=== PATIENT | male | born 2000 | race Caucasian/White ===

== ENCOUNTER 2020-07-24 13:42 | Outpatient (REF) | payer OTHER, SELFPAY ==
--- NOTE | 2020-07-24 15:07 | MHC.AU.P13 ---
Adult Audiological Evaluation Date of Visit: 07/24/20 Reason for Appointment: Audiological evaluation due to failed hearing screening in left ear at recent physical. Patient denies any hearing concerns. Does patient feel they have a hearing loss?: No Has hearing been tested previously?: No Hearing Handicap Inventory HHIE SCORE: 0 Based on HHIE score, patient has: No perceived hearing handicap Ear History: Unremarkable Medical History: Medical History: Unremarkable Medical History Otoscopy: Right Ear: Unremarkable Left Ear: Unremarkable Tympanometry: Right Ear: Normal Middle Ear System (Type A) Left Ear: Normal Middle Ear System (Type A) Otoacoustic Emissions Frequency Range Used: 1.6-8 kHz Right Ear Results: Present Emissions Analysis: Present emissions suggest normal cochlear function Rules out peripheral hearing loss greater than a mild degree Left Ear Results: Normal responses 1.6-3.2 & 4.0-8.0 kHz. Reduced at 3.6 kHz. Analysis: Present emissions suggest normal cochlear function Reduced/Absent emissions suggest cochlear dysfunction Hearing Evaluation: Transducer(s) Used: Insert Earphones, Bone Conduction Method: Conventional Audiometry Stimuli Used: Pure Tones Right Ear: Description of Hearing: Normal hearing 250-8000 Hz. Left Ear: Description of Hearing: Normal hearing 250-8000 Hz. Speech Recognition Threshold (SRT): Method Used: Monitored Live Voice Stimuli Used: Spondee Words Right Ear: 10 dBHL Left Ear: 5 dBHL Word Discrimination: Method: Recorded Lists Word Lists Used: NU-6 Right Ear: 100% at 50 dBHL Left Ear: 100% at 50 dBHL Recommendations: Recommendations: No further audiological action is indicated at this time. Audiological re-evaluation if changes are noted. Recommendations (Other): Patient was advised to be cautious of volume of headphones/earbuds and to protect hearing when around loud noise. Diagnosis: Primary Diagnosis: H93.293 Abnormal Auditory Perception Services Performed: Services Performed: Comprehensive Audiological Evaluation (CPT 53111) Diagnostic Otoacoustic Emissions (CPT 28661, 26+TC) Tympanometry (CPT 38702) Signature: Provider: Elsa Mathews, CCC-A
== END 2020-07-24 13:43 | disposition home or self-care (01) ==
LOC: HO.SH 13:42
PROVIDERS: PCP Pediatrics; Referring Provider Nurse Practitioner Primary Care; Visit Provider Nurse Practitioner Primary Care
DX: H93.293 Other abnormal auditory perceptions, bilateral (principal)
CPT/HCPCS: 92557; 92567; 92588

== ENCOUNTER 2021-04-03 07:00 | Outpatient (RCR) | payer OTHER, SELFPAY | END 2021-08-12 09:53 | disposition home or self-care (01) | LOC: HO.PT 07:00 | PROVIDERS: PCP Nurse Practitioner Primary Care; Visit Provider Nurse Practitioner Primary Care | DX: M25.552 Pain in left hip (principal) | CPT/HCPCS: 97110; 97112; 97140; 97162; 97530 ==

== ENCOUNTER 2023-03-11 00:03 | Emergency (ER) | payer OTHER, SELFPAY ==
[2023-03-11 00:14] VITALS: BP 129/82; PULSE 78; RESP 14; TEMP 36.6; BMI 21.3
[2023-03-11 00:49] LABS: Appearance Urine Cloudy; Color Urine Yellow; Glucose Urine UA Negative (Negative); Leukocyte Esterase Urine Negative (Negative); Nitrite Urine Negative (Negative); Specific Gravity - Urine >= 1.030 (1.005-1.025); Urine Blood Negative (Negative); Urine Ketones Trace mg/dL (Negative); Urine Protein Negative (Neg-Trace)
[2023-03-11 00:59] LABS: Amphetamine Screen Urine Not Detected (Not Detect); Barbiturates, Urine Not Detected (Not Detect); Benzodiazepines Screen Urine Not Detected (Not Detect); Cannabinoid Screen Urine Not Detected (Not Detect); Cocaine Screen Urine Not Detected (Not Detect); Fentanyl, urine Not Detected (Not Detect); Opiate Screen Urine Not Detected (Not Detect); Phencyclidine Screen Urine Not Detected (Not Detect)
--- NOTE | 2023-03-11 01:13 | ED_ITS ---
HPI - Psych General Chief Complaint: Psychiatric Symptoms Stated Complaint: SI Time Seen by Provider: 03/11/23 00:13 Source: patient Mode of arrival: EMS Limitations: no limitations History of Present Illness HPI Narrative: Patient comes to the emergency room by ambulance for suicidal ideation. However, patient states that he is not suicidal. Patient states that he has a lot of stressors at home with his mother being sick. However, he was on the phone texting to friends, patient said that he wonders what suicide would be like. However, patient never intended to hurt himself or others. Patient has no psychiatric history. Related Data Home Medications Medication Instructions Recorded Confirmed No Known Home Meds 03/11/23 03/11/23 Allergies Allergy/AdvReac Type Severity Reaction Status Date / Time No Known Allergies Allergy Verified 03/11/23 00:25 Review of Systems Review of Systems: Constitutional : No Weight loss, No Fever, No Chills, No Night Sweats, No Fatigue, No Malaise ENT/Mouth : No Hearing loss, No Ear Pain, No Nasal Congestion, No Sinus Pain, No Hoarseness, No sore throat, No Rhinorrhea, No Swallowing Difficulty Eyes: No Eye Pain, No Swelling, No Redness, No Foreign Body, No Discharge, No Vision Changes Cardiovascular : No Chest Pain, No SOB, No Dyspnea on Exertion, No Orthopnea, No Edema, No Palpitations Respiratory : No Cough, No Sputum, No Wheezing, No Smoke Exposure, No Dyspnea Gastrointestinal : No Nausea, No Vomiting, No Diarrhea, No Constipation, No abdominal Pain, No Hematochezia, No Melena Genitourinary : no irregular bleeding, No Dysuria, No Urinary Frequency, No Hematuria, No Urinary Incontinence, No Urgency, No Flank Pain, No Urinary Flow Changes, No Hesitancy Musculoskeletal : No joint pain, No Myalgias, No Joint Swelling Skin : No Skin Lesions, No rash Neuro : No Weakness, No Numbness, No Paresthesias, No Loss of Consciousness, No Dizziness, No Headache Psych : Anxiety, stressors at home, No Depression, No SI/HI/AH/VH, mother sick at home causing family stressors Heme/Lymph: No Bruising, No Bleeding,No Lymphadenopathy Endocrine : No Polyuria, No Polydipsia, No Temperature Intolerance PMFSH Social History Social History Advance Directives: No Advance Directives Information Provided: Yes Physical Exam Vital Signs: Vital Signs: Last Vital Signs Temp 97.8 F 03/11/23 00:14 Pulse 78 03/11/23 00:14 Resp 14 03/11/23 00:14 BP 129/82 03/11/23 00:14 BMI result Body Mass Index 21.3 Const: Other: Appearance: Alert. Oriented X3. No acute distress. Eyes: Pupils equal, round and reactive to light. ENT: Pharynx normal. Neck: Normal inspection. Neck supple. No lymph nodes noted. No crepitus CVS: Normal heart rate and rhythm. Pulses normal. Normal S1 and S2 Respiratory: No respiratory distress. Breath sounds normal. No Wheezing. No rales Abdomen: Soft and nontender. No rigidity. No distention. Skin: Skin warm and dry. Normal skin color. Normal skin turgor. Extremities: No lower extremity edema. No Lacerations. No Rash Neuro: Oriented X 3. No motor deficit. No sensory deficit. Moving all extremities. No slurred speech. CN 2 through 12 grossly intact Psych: calm, cooperative, normal affect Medical Decision Making Medical Decision Making MDM Narrative: -patient denies suicidal or homicidal ideation. Patient states that he feels stupid for what he said, states that he understands why his friends became worried and called EMS. But patient is adamant that he has never been suicidal or homicidal. -patient is not on a Section 12 -patient given the option to be seen by behavioral health, patient respectfully declined Differential Diagnosis Differential Diagnoses: The differential diagnosis associated with the presentation includes (Anxiety, depression) Lab Data Labs: Lab Results 03/11/23 03/11/23 Range/Units 00:37 00:37 Urine Color Yellow Urine Appearance Cloudy Urine pH 7.0 (5.0-9.0) Ur Specific [place] >= 1.030 H (1.005-1.025) Urine Protein Negative (Neg-Trace) mg/dL Urine Glucose (UA) Negative (Negative) mg/dL Urine Ketones Trace (Negative) mg/dL Urine Blood Negative (Negative) Urine Nitrite Negative (Negative) Ur Leukocyte Esterase Negative (Negative) Urine Opiates Screen Not Detected (Not Detect) Urine Fentanyl Screen Not Detected (Not Detect) Ur Barbiturates Screen Not Detected (Not Detect) Ur Phencyclidine Scrn Not Detected (Not Detect) Ur Amphetamines Screen Not Detected (Not Detect) U Benzodiazepines Scrn Not Detected (Not Detect) Urine Cocaine Screen Not Detected (Not Detect) U Marijuana (THC) Screen Not Detected (Not Detect) Discharge Plan Discharge Clinical Impression: Anxiety Patient Disposition: Home, Self-Care Instructions: Anxiety (ED) Additional Instructions: Please follow-up with your primary care physician tomorrow. If you have any worsening or new symptoms, please return to the emergency room or call 911 Prescriptions: No Action No Known Home Meds
--- NOTE | 2023-03-11 01:22 | MHC.CARE ---
T/W spoke with Logan briefly and gave him the Patient Resource Booklet in case, he felt that he needs support at a later time.
== END 2023-03-11 01:31 | disposition home or self-care (01) ==
PROVIDERS: Emergency Provider Emergency Medicine
DX: R45.851 Suicidal ideations (principal); F41.1 Generalized anxiety disorder; F43.0 Acute stress reaction; Z79.899 Other long term (current) drug therapy
CPT/HCPCS: 80307; 81003; 99283

== ENCOUNTER 2024-10-16 13:37 | Outpatient (REF) | payer OTHER, SELFPAY ==
--- NOTE | ~2024-10-16 | XR_ITS ---
EXAMINATION: XR LUMBOSACRAL SPINE CLINICAL INFORMATION: PAIN COMPARISON: None available. TECHNIQUE: Three views of the lumbosacral spine. FINDINGS: The vertebral bodies and posterior elements are normal. The disc spaces are preserved and the vertebral alignment is normal. The paraspinal soft tissues are normal. XR/XR lumbar spine 2-3V IMPRESSION: Unremarkable lumbar spine examination. Electronically signed by: Tyler Schmid MD 10/16/2024 03:24 PM [facility]
--- NOTE | ~2024-10-16 | XR_ITS ---
EXAMINATION: XR CERVICAL SPINE CLINICAL INFORMATION: PAIN COMPARISON: None available. TECHNIQUE: 3 views of the cervical spine were obtained. FINDINGS: There is mild straightening of cervical lordosis. The vertebral heights, alignment and disc heights are normal. No visible acute fracture, dislocation or lytic process seen. The prevertebral and paravertebral soft tissues are normal. XR/XR cervical spine 3V IMPRESSION: Unremarkable CT cervical spine exam. Electronically signed by: Tyler Schmid MD 10/16/2024 03:25 PM [facility]
--- NOTE | ~2024-10-16 | XR_ITS ---
EXAMINATION: XR THORACIC SPINE CLINICAL INFORMATION: PAIN COMPARISON: None available. TECHNIQUE: 3 views of the thoracic spine were obtained. FINDINGS: There is maintained thoracic kyphosis with mild S-shaped scoliosis of thoracal lumbar spine. The vertebral heights, alignment and disc heights are normal. No visible acute fracture, dislocation or subluxation seen. The soft tissues are normal. XR/XR thoracic spine 2V IMPRESSION: Mild S-shaped scoliosis of dorsolumbar spine. No visible acute fracture or dislocation seen. Electronically signed by: Tyler Schmid MD 10/16/2024 03:26 PM [facility]
--- OUTSIDE RECORDS SUMMARY | 2024-10-16 16:07 | XMS_ITS | Clinical Summary ---
Author Organization [employer] Address [address] [place] [address] [address] [place] [address] Care Team Providers Care Assistant Professor Of Life Sciences Name Role Phone Luisa Rosas Primary Care Provider [phone] Allergies No known active allergies Medications methylPREDNISol one (Medrol Dospak) 4 MG tablets Follow schedule on package instructions 21 tablet 5 10/24/19 25 Active baclofen (Lioresal) 10 MG tablet Take 1 tablet (10 mg) by mouth if needed in the morning, at noon, and at bedtime for muscle spasms. 60 tablet 1 5 12/16/19 25 Active naproxen (Naprosyn) 500 MG tablet Take 1 tablet (500 mg) by mouth if needed in the morning and at bedtime for mild pain. 40 tablet 1 5 10/17/19 26 Active acetaminophen (Tylenol 8 Hour) 650 MG ER tablet Take 1 tablet (650 mg) by mouth every 8 (eight) hours if needed for mild pain. Do not crush, chew, or split. 40 tablet 1 5 11/16/19 25 Active Diclofenac Sodium 1 % gel Apply 2 g topically if needed in the morning, at noon, in the evening, and at bedtime (pain). 150 g 1 5 Active Active Problems Problem Noted Date Diagnosed Date Mild scoliosis 10/16/2024 Chronic back pain 10/16/2024 Encounters Date Type Department Care Team Description 10/16/2024 12:00 PM EST Office Visit [facility] [address] [place], [place] [phone] Gloria Gómez DO Upper back pain (Primary Dx); Chronic left-sided low back pain without sciatica; Mild scoliosis; Encounter for immunization 10/16/[address] [facility] [address] [place] [address] Gloria Gómez DO 10/16/2024 Travel 10/14/2024 Travel 10/11/[address] [facility] [address] [place] [address] Daphne Harding, RN NTTS from Last 3 Months Immunizations Name Administration Dates Next Due DTaP 09/16/2004, 2,2001,01/31,2000 HPV 9-Valent 11/09/2016,11/06/2015 HPV, Quadrivalent 08/03/2014 Hep A, ped/adol, 2 dose 08/03/2014,08/15/2013 Hep B, Adolescent or Pediatric 2001,2000,2000 Hib (HbOC) 10/26/2001,08/01/2001,2000 IPV 09/16/2004, 1,01/31/2001,11/25 Influenza injectable quadriv alent IIV4 with preservative 05/19/2019,11/06/2015 Influenza injectable quadriv alent preservative free 06/17/2022,07/15/2020,08/03/2014 Influenza, IIV3, injectable 06/10/2011, 0 Influenza, Split (incl. liang fied surface antigen) 08/15/2013,06/08/2012 Influenza, seasonal, injecta ble, preservative free 10/16/2024 MMR 09/16/2004,10/26/2001 Meningococcal B, Recombinant 10/06/2022,04/03/20 22 Meningococcal MCV4P ACYW-135 11/09/2016,08/03/20 14 Pneumococcal Conjugate PCV 7 08/01/2001, 2001,01/31/2001,11/25 Tdap 06/08/2012 Varicella 06/08/2012,08/01/2001 Social History Tobacco Use Types Packs/Day Years Used Date Smoking Tobacco: Never Smokeless Tobacco: Never Tobacco Cessation:Counseling Given: Not Answered Alcohol Use Standard Drinks/Week Comments Never 0 (1 standard drink = 0.6 oz pur e alcohol) Sex and Gender Information Value Date Recorded Sex Assigned at Male 06/15/2022 10:16 AM EDT Legal Sex Male 10:16 AM EDT Gender Identity Male 06/15/2022 10:16 AM EDT Sexual Orientation Straight 06/15/2022 10 :16 AM EDT Last Filed Vital Signs Vital Sign Reading Time Taken Comments Blood Pressure 122/70 10/16/2024 12:22 PM EST Pulse 73 10/16/2024 12:22 PM EST Temperature 36.9 ??C (98.4 ??F) 10/16/2024 12:[address] Respiratory Rate 21 10/16/2024 12:22 PM EST Oxygen Saturation - - Inhaled Oxygen Concentration - - Weight 64.9 kg (143 lb) 10/16/2024 12:22 PM EST Height 172.7 cm (5' 8 ) 10/16/2024 12:22 PM EST Body Mass Index 21.74 10/16/2024 12:22 PM EST Plan of Treatment Upcoming Encounters Date Type Department Care Team (Late st Contact Info) Description 11/02/2024 1:30 PM EDT Office Visit [facility] [address] [place], [place] [phone] Luisa Rosas, ANP [address] [place] [address] Health Maintenance Due Date Last Done Comments Depression Screening 2000 HIV Screening 2000 SDOH Screening 2000 Family Planning (PISQ) 2015 Hepatitis C Screening 2018 DTaP/Tdap/Td Vaccines (6 - Td or Tdap) 06/08/2022 06/08/2012, 09/16/2004, 10/26/2001, Additional history exists COVID-19 Vaccine ( season) 2024 08/22/2021, 01/08/2021, 12/18/2020 Alcohol/Substance Use Screening 10/16/2025 10/16/2024 Tobacco Screening 10/16/2025 10/16/2024 Zoster Vaccines (1 of 2) 2050 RSV Patients and Patients Aged 60 years or older (1 - 1-dose 75+ series) 2075 Hepatitis B Vaccines Completed 2001, 2000, 2000 Pneumococcal Vaccine: Pediatrics (0 to 5 Years) and At-Risk Patients (6 to 49) Years) Aged Out 08/01/2001, 2001, 01/31/2001, Additional history exists No longer eligible based on patient's age to complete this topic HIB Vaccines Completed 10/26/2001, 07/16, 2000 IPV Vaccines Completed 09/16/2004, 07/16, 01/31/2001, Additional history exists Hepatitis A Vaccines Completed 08/03/2014, 08/15/20 13 HPV Vaccines Completed 11/09/2016, 10/15, 08/03/2014 Meningococcal Vaccine Completed 11/09/2016, 014 Influenza Vaccine Completed 10/16/2024, , 07/15/2020, Additional history exists RSV under 20 months Aged Out No longe r eligible based on patient's age to complete this topic Rotavirus Vaccines Aged Out No longer eligible based on patient's age to complete this topic Procedures Procedure Name Priority Date/Time Associated Diagnosis Comments XR CERVICAL SPINE 3V Routine 10/16/2024 1:39 PM EST XR LUMBAR SPINE 2-3 VIEWS Routine 10/16/2024 1:39 PM EST Upper back pain Chronic left-sided low back pain without sciatica XR THORACIC SPINE 2 VIEWS Routine 10/16/2024 1:39 PM EST Upper back pain Chronic left-sided low back pain without sciatica from Last 3 Months Results * XR CERVICAL SPINE 3V (10/16/2024 1:39 PM EST) Anatomical Region Laterality Modality Abdomen Radiographic Genesis ging 10/16/2024 1:39 PM EST Narrative 10/16/2024 3:28 PM EST ?[place] [facility] ?[address] ?[place] [address] ?XRay Report ? Signed ? Patient: Maxwell,Logan ?MR#: [id number] ?? 65 ? : 2000 ?Acct:[id number] ? Age/Sex: 24 / M ?ADM Date: 10/16/24 ? Loc: HO.HHCX ? Attending Dr: Gloria Gómez DO ? Ordering Physician: Gloria Gómez DO ?? Date of Service: 10/16/24 ?? Procedure(s): XR cervical spine 3V ?? Accession Number(s): [id number] ? cc: Gloria Gómez DO ? EXAMINATION: ?? XR CERVICAL SPINE ? CLINICAL INFORMATION: ?? PAIN ? COMPARISON: ?? None available. ? TECHNIQUE: ?? 3 views of the cervical spine were obtained. ? FINDINGS: ?? There is mild straightening of cervical lordosis. The vertebral ?? heights, alignment and disc heights are normal. No visible acute ?? fracture, dislocation or lytic process seen. The prevertebral and ?? paravertebral soft tissues are normal. ? XR/XR cervical spine 3V ?? IMPRESSION: ?? Unremarkable CT cervical spine exam. ? Electronically signed by: ??Tyler Schmid MD ??10/16/2024 03:25 PM EST RP ? Dictated By: ?Tyler Schmid MD ? Signed By: ?<Electronically signed by Tyler S Sharmaine, MD in OV> ?10/16/24 1525 ? DD/ 1339 ? TD/TT: 10/16/24 1400 ? Wood Treating Inspector: MSM ? Procedure Note Yordan Pearl - 10/16/[address] [address] XRay Report Signed Patient: Swapnil Maxwell#: [id number] 65 : 2000Acct:[id number] Age/Sex: 24 / MADM Date: 10/16/24 Loc: HO.HHCX Attending Dr: Gloria Gómez DO Ordering Physician: Gloria Gómez DO Date of Service: 10/16/24 Procedure(s): XR cervical spine 3V Accession Number(s): [id number] cc: Gloria Gómez DO EXAMINATION: XR CERVICAL SPINE CLINICAL INFORMATION: PAIN COMPARISON: None available. TECHNIQUE: 3 views of the cervical spine were obtained. FINDINGS: There is mild straightening of cervical lordosis. The vertebral heights, alignment and disc heights are normal. No visible acute fracture, dislocation or lytic process seen. The prevertebral and paravertebral soft tissues are normal. XR/XR cervical spine 3V IMPRESSION: Unremarkable CT cervical spine exam. Electronically signed by: Tyler Schmid MD 10/16/2024 03:25 PM EST RP Dictated By: Tyler Schmid MD Signed By: <Electronically signed by Tyler Schmid MD in OV> 10/16/24 1525 DD/ 1339 TD/TT: 10/16/24 1400 Wood Treating Inspector: DANIELLE us Gloria Gómez DO IMG XR PROCEDURES Final Resu lt * XR Lumbar Spine 2-3 Views (10/16/2024 1:39 PM EST) Anatomical Region Laterality Modality Spine, L-spine Radiographic Genesis ging 10/16/2024 1:39 PM EST Narrative 10/16/2024 3:27 PM EST ?[facility] ?[address] ?[place] [address] ?XRay Report ? Signed ? Patient: Maxwell,Logan ?MR#: [id number] ?? 65 ? : 2000 ?Acct:[id number] ? Age/Sex: 24 / M ?ADM Date: 10/16/24 ? Loc: HO.HHCX ? Attending Dr: Gloria Gómez DO ? Ordering Physician: Gloria Gómez DO ?? Date of Service: 10/16/24 ?? Procedure(s): XR lumbar spine 2-3V ?? Accession Number(s): [id number] ? cc: Gloria Gómez DO ? EXAMINATION: ?? XR LUMBOSACRAL SPINE ? CLINICAL INFORMATION: ?? PAIN ? COMPARISON: ?? None available. ? TECHNIQUE: ?? Three views of the lumbosacral spine. ? FINDINGS: ?? The vertebral bodies and posterior elements are normal. The disc spaces ?? are preserved and the vertebral alignment is normal. The paraspinal ?? soft tissues are normal. ? XR/XR lumbar spine 2-3V ?? IMPRESSION: ?? Unremarkable lumbar spine examination. ? Electronically signed by: ??Tyler Schmid MD ??10/16/2024 03:24 PM EST RP ? Dictated By: ?Tyler Schmid MD ? Signed By: ?<Electronically signed by Tyler Schmid MD in OV> ?10/16/24 1524 ? DD/ 1339 ? TD/TT: 10/16/24 1400 ? Wood Treating Inspector: MSM ? Procedure Note Dontonyter, Image - 10/16/[address] [address] XRay Report Signed Patient: Swapnil Maxwell#: [id number] 65 : 2000Acct:[id number] Age/Sex: 24 / MADM Date: 10/16/24 Loc: HO.HHCX Attending Dr: Gloria Gómez DO Ordering Physician: Gloria Gómez DO Date of Service: 10/16/24 Procedure(s): XR lumbar spine 2-3V Accession Number(s): [id number] cc: Gloria Gómez DO EXAMINATION: XR LUMBOSACRAL SPINE CLINICAL INFORMATION: PAIN COMPARISON: None available. TECHNIQUE: Three views of the lumbosacral spine. FINDINGS: The vertebral bodies and posterior elements are normal. The disc spaces are preserved and the vertebral alignment is normal. The paraspinal soft tissues are normal. XR/XR lumbar spine 2-3V IMPRESSION: Unremarkable lumbar spine examination. Electronically signed by: Tyler Schmid MD 10/16/2024 03:24 PM [facility] Dictated By: Tyler Schmid MD Signed By: <Electronically signed by Tyler Schmid MD in OV> 10/16/24 1524 DD/ 1339 TD/TT: 10/16/24 1400 Wood Treating Inspector: MSM us Gloria Gómez DO IMG XR PROCEDURES Final Resu lt * XR Thoracic Spine 2 Views (10/16/2024 1:39 PM EST) Anatomical Region Laterality Modality Spine, T-spine Radiographic Genesis ging 10/16/2024 1:39 PM EST Narrative 10/16/2024 3:29 PM EST ?[facility] ?[address] ?[place] [address] ?XRay Report ? Signed ? Patient: Maxwell,Logan ?MR#: [id number] ?? 65 ? : 2000 ?Acct:[id number] ? Age/Sex: 24 / M ?ADM Date: 10/16/24 ? Loc: HO.HHCX ? Attending Dr: Gloria Gómez DO ? Ordering Physician: Gloria Gómez DO ?? Date of Service: 10/16/24 ?? Procedure(s): XR thoracic spine 2V ?? Accession Number(s): [id number] ? cc: Gloria Gómez DO ? EXAMINATION: ?? XR THORACIC SPINE ? CLINICAL INFORMATION: ?? PAIN ? COMPARISON: ?? None available. ? TECHNIQUE: ?? 3 views of the thoracic spine were obtained. ? FINDINGS: ?? There is maintained thoracic kyphosis with mild S-shaped scoliosis of ?? thoracal lumbar spine. The vertebral heights, alignment and disc ?? heights are normal. No visible acute fracture, dislocation or ?? subluxation seen. The soft tissues are normal. ? XR/XR thoracic spine 2V ?? IMPRESSION: ?? Mild S-shaped scoliosis of dorsolumbar spine. No visible acute fracture ?? or dislocation seen. ? Electronically signed by: ??Tyler Sharmaine MD ??10/16/2024 03:26 PM EST RP ? Dictated By: ?Sharmaine,Tyler S MD ? Signed By: ?<Electronically signed by Tyler S Sharmaine, MD in OV> ?10/16/24 1526 ? DD/ 1339 ? TD/TT: 10/16/24 1400 ? Wood Treating Inspector: MSM ? Procedure Note Dae, Image - 10/16/2024 [facility] [address] [place] [address] XRay Report Signed Patient: Logan MawxellMR#: [id number] 65 : 2000Acct:[id number] Age/Sex: 24 / MADM Date: 10/16/24 Loc: HO.HHCX Attending Dr: Gloria Gómez DO Ordering Physician: Gloria Gómez DO Date of Service: 10/16/24 Procedure(s): XR thoracic spine 2V Accession Number(s): [id number] cc: Gloria Gómez DO EXAMINATION: XR THORACIC SPINE CLINICAL INFORMATION: PAIN COMPARISON: None available. TECHNIQUE: 3 views of the thoracic spine were obtained. FINDINGS: There is maintained thoracic kyphosis with mild S-shaped scoliosis of thoracal lumbar spine. The vertebral heights, alignment and disc heights are normal. No visible acute fracture, dislocation or subluxation seen. The soft tissues are normal. XR/XR thoracic spine 2V IMPRESSION: Mild S-shaped scoliosis of dorsolumbar spine. No visible acute fracture or dislocation seen. Electronically signed by: Tyler Schmid MD 10/16/2024 03:26 PM [facility] Dictated By: Tyler Schmid MD Signed By: <Electronically signed by Tyler Schmid MD in OV> 10/16/24 1526 DD/ 1339 TD/TT: 10/16/24 1400 Wood Treating Inspector: DANIELLE Gloria Gómez DO IMG XR PROCEDURES Final Resu lt from Last 3 Months Insurance [facility] [place] [id number] Care Teams Assistant Professor Of Life Sciences Relationship Specialty Start Date End Date Luisa Rosas ANP [address] [place] [id number] PCP - General Family Medicine 02/23/20
--- OUTSIDE RECORDS SUMMARY | 2024-10-16 16:08 | XMS_ITS | Encounter Summary ---
Author Organization [employer] Address [address] [place] [address] Care Team Providers Care Pattern Wheel Maker Name Role Phone Luisa Rosas DEBORAH Primary Care Provider [phone] Reason for Visit * Reason Onset Date Comments NTTS 10/11/2024 Encounter Details Date Type Department Care Team (Late st Contact Info) Description 10/11/2024 Telephone [facility] [address] [place], [place] [phone] Daphne Harding RN [address] [place] [address] NTTS Social History Tobacco Use Types Packs/Day Years Used Date Smoking Tobacco: Never Assessed Sex and Gender Information Value Date Recorded Sex Assigned at Male 06/15/2022 10:16 AM EDT Legal Sex Male 10:16 AM EDT Gender Identity Male 06/15/2022 10:16 AM EDT Sexual Orientation Straight 06/15/2022 10 :16 AM EDT documented as of this encounter Miscellaneous Notes * Telephone Encounter - Daphne Harding RN - 10/11/2024 2:31 PM EST Pt called NTTS 10/09/24 requesting urgent referral for ongoing back issues. Was advised to call whenwe are open. He has not called since. He also has not been seen in our office since March 2022 andwe do not accept the health insurance that we have on file for him. 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 Telephone call placed to pt. Informed that we haven't seen him in a long time and don't accept insurance on file so wouldn't be able to place referral. Pt reports new insurance [employer] and gave me ID number from his insurance card. Updated chart and verified insurance. Pt agreeable to30 min appt to reestablish care with PCP. Booked for 11/02. Pt also reports Hx of scoliosis and thatrecently he has had increased neck and shoulder pain that he believes is related to his scoliosis. Denies known injury. Wants it evaluated DAISY as he would like a referral to a specialist. Booked [facility] for Monday 10/16 with Rico to evaluate his pain and see if referral appropriate prior to PCP visit. Informed of NTTS and WIC. Pt verbalized understanding and denied having any further questionsor concerns at this time. Attempted to do chart abstraction but no problems came in from other system and only meds are for constipation. Reconciled vaccines. documented in this encounter Plan of Treatment Upcoming Encounters Date Type Department Care Team (Late st Contact Info) Description 11/02/2024 1:30 PM EDT Office Visit [facility] [address] [place] [address] Luisa Rosas ANP [address] [place] [address] documented as of this encounter Visit Diagnoses Not on filedocumented in this encounter Care Teams Pattern Wheel Maker Relationship Specialty Start Date End Date Luisa Rosas ANP [address] [place] [phone] PCP - General Family Medicine 02/23/20 documented as of this encounter
--- OUTSIDE RECORDS SUMMARY | 2024-10-16 16:08 | XMS_ITS | Encounter Summary ---
Author Organization [email or web address] [facility] Address [address] [place] [address] 7[address] [place] [address] Care Team Providers Care Observation Nurse Name Role Phone Luisa Rosas Primary Care Provider [phone] Encounter Details Date Type Department Care Team (Latest Contact Info) Description 10/16/2024 Travel Social History Tobacco Use Types Packs/Day Years Used Date Smoking Tobacco: Never Smokeless Tobacco: Never Alcohol Use Standard Drinks/Week Comments Never 0 (1 standard drink = 0.6 oz pur e alcohol) Sex and Gender Information Value Date Recorded Sex Assigned at Male 06/15/2022 10:16 AM EDT Legal Sex Male 10:16 AM EDT Gender Identity Male 06/15/2022 10:16 AM EDT Sexual Orientation Straight 06/15/2022 10 :16 AM EDT documented as of this encounter Plan of Treatment Upcoming Encounters Date Type Department Care Team (Late st Contact Info) Description 11/02/2024 1:30 PM EDT Office Visit [facility] MEDICINE [address] [place] [address] Luisa Rosas ANP [address] [place] [address] documented as of this encounter Visit Diagnoses Not on filedocumented in this encounter Care Teams Observation Nurse Relationship Specialty Start Date End Date Luisa Rosas ANP [address] [place] [address] PCP - General Family Medicine 02/23/20 documented as of this encounter
--- OUTSIDE RECORDS SUMMARY | 2024-10-16 16:08 | XMS_ITS | Encounter Summary ---
Author Organization [employer] Address [address] [place] [address] 7 [place] [address] Care Team Providers Care Assistant Front Desk Manager Name Role Phone Luisa Rosas Primary Care Provider [phone] Reason for Referral * Consultation (Routine) - Pending Review Specialty Diagnoses / Procedures Referred By Contact Referred To Contact Physical Medicine and Rehabilitation Diagnoses Upper back pain Chronic left-sided low back pain without sciatica Gloria Gómez DO [address] [place] [address] Phone: tel: fax: Referral ID Status Reason Start Date Expiration Date Visits Requested Visits Authorized [id number] Pending Review Specialty Services Required 10/16/2024 10/16/2025 1 1 Encounter Details Date Type Department Care Team (Late st Contact Info) Description 10/16/2024 12:00 PM EST Office Visit [facility] MEDICINE [address] [place], [place] [phone] Gloria Gómez DO [address] [place] [address] Upper back pain (Primary Dx); Chronic left-sided low back pain without sciatica; Mild scoliosis; Encounter for immunization Social History Tobacco Use Types Packs/Day Years [...] AM EDT documented as of this encounter Last Filed Vital Signs Vital Sign Reading [...] Mass Index 21.74 10/16/2024 12:22 PM EST documented in this encounter Plan of Treatment Upcoming Encounters Date Type Department Care Team (Late st Contact Info) Description 11/02/2024 1:30 PM EDT Office Visit [facility] MEDICINE [address] [place] [address] Luisa Rosas, ANP [address] [place] [address] Scheduled Orders Name Type Priority Associated Diagnoses Orde r Schedule XR Cervical Spine 2-3 Views Imaging Routine Upper back pain Chronic left-sided low back pain without sciatica Expected: 10/16/2024, Expires: 10/16/2025 Scheduled Referrals Name Type Priority Associated Diagnoses Orde r Schedule Referral to Physical Medicine Rehab Outpatient Referral Routine Upper back pain Chronic left-sided low back pain without sciatica Expected: 10/16/2024 (Approximate), Expires: 10/16/2025 documented as of this encounter Procedures Procedure Name Priority Date/Time Associated Diagnosis Comments XR LUMBAR SPINE 2-3 VIEWS Routine 10/16/2024 1:39 PM EST Upper back pain Chronic left-sided low back pain without sciatica XR THORACIC SPINE 2 VIEWS Routine 10/16/2024 1:39 PM EST Upper back pain Chronic left-sided low back pain without sciatica documented in this encounter Results * XR Lumbar Spine 2-3 Views (10/16/2024 1:39 PM EST) Anatomical Region Laterality Modality Spine, L-spine Radiographic Genesis ging 10/16/2024 1:39 PM EST Narrative 10/16/2024 3:27 PM EST ?[facility] ?[address] ?[place] [address] ?XRay Report ? Signed ? Patient: Maxwell,Logan ?MR#: [id number] ?? 65 ? : 2000 ?Acct:[id number] ? Age/Sex: 24 / M ?ADM Date: 10/16/24 ? Loc: HO.HHCX ? Attending Dr: Gloria Gómez DO ? Ordering Physician: Gloria Gómez DO ?? Date of Service: 10/16/24 ?? Procedure(s): XR lumbar spine 2-3V ?? Accession Number(s): [id number] ? cc: Gloria Gómez DO ? EXAMINATION: [...] 03:24 PM EST RP ? Dictated By: ?Sharmaine,Tyler S MD ? Signed By: ?<Electronically signed by Tyler S Sharmaine, MD in OV> ?10/16/24 1524 ? DD/ 1339 ? TD/TT: 10/16/24 1400 ? Ampoule Sealer: MSM ? Procedure Note Yordan Pearl - 10/16/2024 [facility] [address] [place] [address] XRay Report Signed Patient: Logan MaxwellMR#: [id number] 65 : 2000Acct:[id number] Age/Sex: 24 / MADM Date: 10/16/24 Loc: HO.HHCX Attending Dr: Gloria Gómez DO Ordering Physician: Gloria Gómez DO Date of Service: 10/16/24 Procedure(s): XR lumbar spine 2-3V Accession Number(s): [id number] cc: Gloria Gómez DO EXAMINATION: XR LUMBOSACRAL [...] by: Tyler Schmid MD 10/16/2024 03:24 PM EST RP Dictated By: Tyler Schmid MD Signed By: <Electronically signed by Tyler Schmid MD in OV> 10/16/24 1524 DD/ 1339 TD/TT: 10/16/24 1400 Ampoule Sealer: DANIELLE us Gloria Gómez DO IMG XR PROCEDURES Final Resu lt * XR Thoracic Spine 2 Views (10/16/2024 1:39 PM EST) Anatomical Region Laterality Modality Spine, T-spine Radiographic Genesis ging 10/16/2024 1:39 PM EST Narrative 10/16/2024 3:29 PM EST ?[facility] ?[address] ?[place] [address] ?XRay Report ? Signed ? Patient: Maxwell,Logan ?MR#: [id number] ?? 65 ? : 2000 ?Acct:[id number] ? Age/Sex: 24 / M ?ADM Date: 03/03/25 ? Loc: HO.HHCX ? Attending Dr: Gloria Gómez DO ? Ordering Physician: Gloria Gómez DO ?? Date of Service: 10/16/24 ?? Procedure(s): XR thoracic spine 2V ?? Accession Number(s): [id number] ? cc: Gloria Gómez DO ? EXAMINATION: [...] dislocation seen. ? Electronically signed by: ??Tyler Schmid MD ??10/16/2024 03:26 PM EST RP ? Dictated By: ?Tyler Schmid MD ? Signed By: ?<Electronically signed by Tyler Schmid MD in OV> ?10/16/24 1526 ? DD/ 1339 ? TD/TT: 10/16/24 1400 ? Ampoule Sealer: MSM ? Procedure Note Dae, Image - 10/16/2024 [place] [address] XRay Report Signed Patient: Logan MaxwellMR#: [id number] 65 : 2000Acct:[id number] Age/Sex: 24 MADM Date: 10/16/24 Loc: .HHCX Attending Dr: Gloria Gómez DO Ordering Physician: Gloria Gómez DO Date of Service: 10/16/24 Procedure(s): XR thoracic spine 2V Accession Number(s): [id number] cc: Gloria Gómez DO EXAMINATION: XR THORACIC [...] by: Tyler Schmid MD 10/16/2024 03:26 PM EST Dictated By: Tyler Schmid MD Signed By: <Electronically signed by Tyler Schmid MD in OV> 10/16/24 1526 DD/ 1339 TD/TT: 10/16/24 1400 Ampoule Sealer: DANIELLE us Gloria Gómez DO IMG XR PROCEDURES Final Resu lt documented in this encounter Visit Diagnoses Diagnosis Upper back pain- Primary Unspecified backache Chronic left-sided low back pain without sciatica Mild scoliosis Encounter for immunization documented in this encounter Care Teams Assistant Front Desk Manager Relationship Specialty Start Date End Date Luisa Rosas ANP [address] [place] [address] PCP - General Family Medicine 02/23/20 documented as of this encounter
--- OUTSIDE RECORDS SUMMARY | 2024-10-16 16:08 | XMS_ITS | Encounter Summary ---
Author Organization [email or web address] [facility] Address [address] [place] [address] [address] [place] [address] Care Team Providers Care Zipper Trimmer Name Role Phone Luisa Rosas Primary Care Provider [phone] Encounter Details Date Type Department Care Team (Late st Contact Info) Description 10/16/2024 Orders Only [facility] MEDICINE [address] [place] [phone] Gloria Gómez DO [address] [place], [place] [phone] Social History Tobacco Use Types Packs/Day Years [...] Description 11/02/2024 1:30 PM EDT Office Visit [facility] MEDICINE [address] [place] [phone] Luisa Rosas ANP [address] [place] [address] documented as of this encounter Procedures Procedure Name Priority Date/Time Associated Diagnosis Comments XR CERVICAL SPINE 3V Routine 10/16/2024 1:39 PM EST documented in this encounter Results * XR CERVICAL SPINE 3V (10/16/2024 1:39 PM EST) Anatomical Region Laterality Modality Abdomen Radiographic Genesis ging 10/16/2024 1:39 PM EST Narrative 10/16/2024 3:28 PM EST ?[facility] ?[address] ?[place] [address] ?XRay Report ? Signed ? Patient: Hans,Logan ?MR#: [id number] ?? 65 ? : 2000 ?Acct:[id number] ? Age/Sex: 24 / M ?ADM Date: 10/16/24 ? Loc: HO.HHCX ? Attending Dr: Gloria Gómez DO ? Ordering Physician: Gloria Gómez DO ?? Date of Service: 10/16/24 ?? Procedure(s): XR cervical spine 3V ?? Accession Number(s): [id number] ? cc: Gloria Gómez DO ? EXAMINATION: [...] 03:25 PM EST RP ? Dictated By: ?Sharmaine,Tyler S MD ? Signed By: ?<Electronically signed by Tyler S Sharmaine, MD in OV> ?10/16/24 1525 ? DD/ 1339 ? TD/TT: 10/16/24 1400 ? Food Safety Technician: MSM ? Procedure Note Dae, Yordan - 10/16/2024 [facility] [address] [place] [address] XRay Report Signed Patient: Logan Maxwell#: [id number] 65 : 2000Acct:[id number] Age/Sex: 24 / MADM Date: 10/16/24 Loc: HO.HHCX Attending Dr: Gloria Gómez DO Ordering Physician: Gloria Gómez DO Date of Service: 10/16/24 Procedure(s): XR cervical spine 3V Accession Number(s): [id number] cc: Gloria Gómez DO EXAMINATION: XR CERVICAL [...] by: Tyler Schmid MD 10/16/2024 03:25 PM [facility] Dictated By: Tyler Schmid MD Signed By: <Electronically signed by Tyler Schmid MD in OV> 10/16/24 1525 DD/ 1339 TD/TT: 10/16/24 1400 Food Safety Technician: DANIELLE Gloria Gómez DO IMG XR PROCEDURES Final Resu lt documented in this encounter Visit Diagnoses Not on filedocumented in this encounter Care Teams Zipper Trimmer Relationship Specialty Start Date End Date Luisa Rosas ANP [address] [place] [address] PCP - General Family Medicine 02/23/20 documented as of this encounter
--- OUTSIDE RECORDS SUMMARY | 2024-10-16 16:08 | XMS_ITS | Encounter Summary ---
Author Organization [employer] [facility] Address [address] [place] [address] [address] [place] [address] Care Team Providers Care Concrete Rod Buster Name Role Phone Luisa Rosas Primary Care Provider [phone] Encounter Details Date Type Department Care Team (Latest Contact Info) Description 10/14/2024 Travel Social History Tobacco Use Types Packs/Day [...] 11/02/2024 1:30 PM EDT Office Visit [facility] MEDICINE [address] [place] [address] Luisa Rosas ANP [address] [place] [address] documented as of this encounter Visit Diagnoses Not on filedocumented in this encounter Care Teams Concrete Rod Buster Relationship Specialty Start Date End Date Luisa Rosas ANP [address] [place] [address] PCP - General Family Medicine 02/23/20 documented as of this encounter
== END 2024-10-16 13:38 | disposition home or self-care (01) ==
LOC: HO.HHCX 13:37
PROVIDERS: Visit Provider Family Medicine
DX: M54.9 Dorsalgia, unspecified (principal); M54.50 Low back pain, unspecified; G89.29 Other chronic pain
CPT/HCPCS: 72040; 72070; 72100

== ENCOUNTER → 2024-10-16 13:39 | Outpatient (BNV) | payer OTHER, SELFPAY | PROVIDERS: Visit Provider Radiology Diagnostic Radiology | DX: M54.50 Low back pain, unspecified (principal); M54.2 Cervicalgia; M41.34 Thoracogenic scoliosis, thoracic region | CPT/HCPCS: 72040; 72070; 72100 ==

== ENCOUNTER 2024-11-02 | Outpatient (REF) | payer OTHER, SELFPAY ==
[2024-11-03 11:01] LABS: CT PCR NOT DETECTED (Not Detect.); NG PCR NOT DETECTED (Not Detect.)
== END 2024-11-02 00:01 | disposition home or self-care (01) ==
LOC: HO.HHCLNP
PROVIDERS: Visit Provider Nurse Practitioner Primary Care
DX: Z11.3 Encounter for screening for infections with a predominantly sexual mode of transmission (principal)
CPT/HCPCS: 87491; 87591